=== PATIENT | female | born 1980 | race Caucasian/White ===

== ENCOUNTER 2024-02-13 07:52 | Emergency (ER) | payer OTHER, SELFPAY ==
[2024-02-13 07:53] VITALS: BP 114/81
[2024-02-13 08:24] VITALS: BMI 28.0
[2024-02-13 08:31] VITALS: BP 124/79
[2024-02-13] MEDS: COMPAZINE 5 MG IV (08:32)
[2024-02-13] MEDS: BENADRYL 12.5 MG IV (08:33)
[2024-02-13] MEDS: TORADOL 15 MG IV (08:33)
--- NOTE | 2024-02-13 08:42 | ED.GENMED ---
History of Present Illness
General
Chief Complaint: Headache
Source: patient and records
Exam Limitations: none
Time Seen by Provider: 02/13/24 08:00
Nursing documentation reviewed up to this point in time: agreed with
History of Present Illness
History of Present Illness:
Patient is a 43-year-old female presents to the emergency department complaining of headache on the right back of her head that started approximately week ago and is not really getting any better. Patient has some floaters in her right eye.
Patient states she took her migraine medication but did not help. Patient had a very similar episode 4 years ago for which she saw treatment in the emergency department. Patient denies any recent injuries or illnesses. Patient denies any fever,
chills, nasal congestion, sore throat or cough. Patient denies any neck pain or stiffness. Patient denies any manipulation of her neck. Patient denies chest pain, shortness of breath or palpitations. Patient denies any symptoms. Patient is
nauseous but denies any abdominal pain, vomiting or diarrhea. Patient denies any speech difficulty, focal weakness or ataxia. Patient denies any numbness or paresthesias. Patient denies any tick bites, joint pain, rashes
Past History
Past History
ED Past Medical History: Other (HAs)
ED Past Surgical History: Other (dental)
Social History
Tobacco: Non-smoker
Review of Systems
Review of Systems
All Other Systems: ROS reviewed and negative except as documented in HPI and ROS
Constitutional: Reports no symptoms
EENT: Reports other (Visual floaters in the right eye)
Respiratory: Reports no symptoms
Cardiac: Reports no symptoms
ABD/GI: Reports nausea; Denies abdominal pain, vomiting, diarrhea, constipated or anorexia
: Reports no symptoms
Musculoskeletal: Reports no symptoms; Denies neck pain or back pain
Skin: Reports no symptoms
Neurological: Reports headache; Denies dizzy, weakness or numbness
Hematologic/Lymphatic: Reports no symptoms
Psychiatric: Reports no symptoms
Phy Exam
Physical Exam
Physical Exam:
Physical Exam
General: mild distress, alert and appropriate, well nourished, well hydrated
HENT: Normocephalic and nontender as well as atraumatic without signs of rash, supple with no lymphadenopathy, no thyromegaly. Oropharynx is clear. TMs intact and clear bilaterally
Eyes: Clear sclera, conjuctiva without injection, extraocular muscles intact, pupils equal reactive to light, visual raymond intact, funduscopic exam benign
Heart: Regular rhythm and rate. No S3, S4. No murmur. No NVD, bruit
Lungs: No respiratory distress, no stridor, lung sounds clear and equal bilaterally, chest wall symmetrical and nontender
Abdomen: Soft, nontender, no organomegaly, no CVA tenderness, BS good
Neuro: Alert and oriented x 3, CN II - XII intact, no motor focality, no cerebellar dysfunction, sensory intact
Skin: no rash
Psychiatric: well kept. interactive and cooperative
Extremities: No edema, cyanosis, tenderness, Good and equal peripheral pulses.
Course
Orders/Labs/Results
Orders:
Orders
02/13/24 08:13
Diphenhydramine [Benadryl] 12.5 mg IV NOW STA
Ketorolac [Toradol] 15 mg IV NOW STA
Prochlorperazine [Compazine] 5 mg IV NOW STA
Test Result ONCE
02/13/24 08:36
Complete Blood Count/With Diff Urgent
Comprehensive Metabolic Panel Urgent
HCG, Serum Qualitative Screen Urgent
Lyme Progressive Urgent
Sed Rate [Erythrocyte Sed Rate] Urgent
02/13/24 10:51
CT Head W/o Iv Contrast Urgent
Comment:
Reason For Exam: change in headache and persistent
Dexamethasone Sod Phosphate [Decadron] 10 mg IV NOW STA
Fentanyl Citrate/Pf [Sublimaze] 25 mcg IV NOW STA
Abnormal Lab Results
02/13/24
08:36
BUN 21 H mg/dl
(7-17)
02/13/24 08:36
02/13/24 08:36
Vital Signs
Initial and Last Documented VS:
Initial Vital Signs
Temp Pulse Resp BP Pulse Ox
98.7 F 83 18 114/81 97
02/13/24 07:53 02/13/24 07:53 02/13/24 07:53 02/13/24 07:53 02/13/24 07:53
Last Documented Vital Signs
Temp Pulse Resp BP Pulse Ox
98.7 F 90 18 113/70 96
02/13/24 07:53 02/13/24 11:35 02/13/24 11:35 02/13/24 11:35 02/13/24 11:35
*Radiology
Radiology exam reviewed: radiology read reviewed
*Pulse Oximetry
Patient hypoxic: no
*EKG
Interpreted by ED Provider?: NA
*Head Operator Interpretation
Rate: Head Operator- N/A
*Critical Care Note
Total Time (30-74mins, 75-104mins- exclusive of procedures): Not Applicable
Update Note
Update Note:
Patient feeling better at this time. Patiently discharged on pain meds and steroids. Patient is due to go on a trip in 2 days. I believe it will be fine for her to do that.
ED Attending Note
-
Portions of this chart may have been created with voice recognition software.� Occasional wrong word or��sound alike� substitutions may have occurred due to the inherent limitations of voice recognition software.
Discharge Plan
Departure
Patient Disposition: Home (Routine Discharge)
Date of Disposition: 02/13/24
Time of Disposition: 13:37
Patient with high blood pressure during this ER visit?: No
Condition: Fair
Covid-19: Not Applicable
Discharge Problem:
Headache
Instructions: Headache, Adult (DC)
Prescriptions:
New
oxycodone 5 mg tablet
5 mg PO Q4H PRN (Reason: Pain) Qty: 14 0RF
prednisone 20 mg tablet
20 mg PO BID Qty: 10 0RF
No Action
cefdinir 300 mg capsule
300 mg PO BID 7 Days Qty: 14 0RF
ondansetron 4 mg tablet,disintegrating
4 mg PO TIDPRN PRN (Reason: nausea/vomiting) Qty: 10 0RF
Referrals:
Amy Adler MD [Family Provider] - Follow up in 5-7 days
Activity Restrictions/Additional Instructions:
Continue present medications and therapy
Interventions
Interventions:
*Risk Screen - Suicide Last Done: 02/13/24 07:53
*General Assessment Last Done: 02/13/24 07:53
*Neglect/Abuse Screening Last Done: 02/13/24 07:53
*ED COVID-19 Vaccine History Last Done: 02/13/24 07:53
ED- Neurological Assessment Last Done: 02/13/24 08:24
Discharge Date and Time
Print Language: [id number]
[2024-02-13 08:52] LABS: % Basophils 1.1 % (0-2); % Eosinophils 2.3 % (0-6); % Immature Granulocytes 0.2 % (0-0.5); % Lymphocytes 36.1 % (20.5-51.1); % Monocytes 6.9 % (1.7-9.3); % Neutrophils 53.4 % (42.2-75.2); Absolute Basophils 0.1 10^3/uL (0-0.2); Absolute Eosinophils 0.1 10^3/uL (0-0.7); Absolute Lymphocytes 1.7 10^3/uL (1.2-3.4); Absolute Monocytes 0.3 10^3/uL (0.1-0.6); Absolute Neutrophils 2.5 10^3/uL (1.4-6.5); Hematocrit 37.8 % (37.0-47.0); Mean Corp Hgb Conc. 34.4 g/dL (33.0-37.0); Mean Corpuscular Hgb 29.1 pg (27.0-31.0); Mean Corpuscular Volume 84.6 fL (81.0-99.0); Nucleated Red Blood Cells % 0 %; Platelet Count 238 10^3/uL (130-400); Red Blood Cell Count 4.47 10^6/uL (4.20-5.40); White Blood Cell Count 4.8 10^3/uL (4.8-10.8)
[2024-02-13 09:02] LABS: Erythrocyte Sed Rate 9 mm/hour (0-20); HCG, Serum Qualitative Screen Negative
[2024-02-13 09:04] LABS: ALT (SGPT) 26 U/L (0-35); AST (SGOT) 22 U/L (14-36); Albumin 4.2 g/dl (3.5-5.0); Alkaline Phosphatase 65 U/L (38-126); Blood Urea Nitrogen 21 mg/dl (7-17); Calcium 9.4 mg/dl (8.4-10.2); Carbon Dioxide 25 mmol/L (22-30); Chloride 107 mmol/L (98-107); Estimated Creatinine Clearance 112 ml/min; Glucose 98 mg/dl (70-99); Potassium 4.1 mmol/L (3.5-5.1); Sodium 138 mmol/L (135-145); Total Bilirubin 0.8 mg/dl (0.2-1.3); Total Protein 6.3 g/dl (6.3-8.2); eGFR > 60.00
[2024-02-13] MEDS: SUBLIMAZE 25 MCG IV (11:07)
[2024-02-13] MEDS: DECADRON 10 MG IV (11:07)
[2024-02-13 11:35] VITALS: BP 113/70
[2024-02-13 15:51] LABS: Lyme Antibody Screen, EIA Negative (Negative)
== END 2024-02-13 14:10 | disposition home or self-care (01) ==
LOC: EMR 07:52
PROVIDERS: EMERGENCY PHYSICIAN Emergency Medicine; FAMILY PHYSICIAN Family Medicine
DX: R51.9 Headache, unspecified (principal); R11.0 Nausea; H53.8 Other visual disturbances; Z88.8 Allergy status to other drugs, medicaments and biological substances
CPT/HCPCS: 99284; 96374; 96375 ×4; 70450; 80053; 84703; 85025; 85652; 86618

== ENCOUNTER → 2024-04-21 15:16 | Outpatient (REF) | payer OTHER, SELFPAY | LOC: WDC 15:16 | PROVIDERS: ATTENDING PHYSICIAN Family Medicine | DX: Z12.31 Encounter for screening mammogram for malignant neoplasm of breast (principal) | CPT/HCPCS: 77063; 77067 ==

== ENCOUNTER → 2024-10-24 10:52 | Outpatient (REF) | payer OTHER, SELFPAY | LOC: RAD 10:52 | PROVIDERS: ATTENDING PHYSICIAN Physician Assistant; FAMILY PHYSICIAN Family Medicine | DX: R42 Dizziness and giddiness (principal); M54.2 Cervicalgia | CPT/HCPCS: 72052 ==

== ENCOUNTER → 2025-01-28 13:24 | Outpatient (REF) | payer OTHER, SELFPAY | LOC: HWRAD 13:24 | PROVIDERS: ATTENDING PHYSICIAN Nurse Practitioner Family; FAMILY PHYSICIAN Family Medicine | DX: N93.9 Abnormal uterine and vaginal bleeding, unspecified (principal) | CPT/HCPCS: 76830; 76856 ==

== ENCOUNTER → 2025-04-22 15:26 | Outpatient (REF) | payer OTHER, SELFPAY | LOC: WDC 15:26 | PROVIDERS: ATTENDING PHYSICIAN Obstetrics & Gynecology; FAMILY PHYSICIAN Family Medicine | DX: Z12.31 Encounter for screening mammogram for malignant neoplasm of breast (principal) | CPT/HCPCS: 77063; 77067 ==